=== PATIENT | female | born 1995 | race Hispanic/Latino ===

== ENCOUNTER 2019-02-07 10:09 | Emergency (ER) | payer SELFPAY ==
[2019-02-07 10:39] LABS: APPEARANCE,URINE Clear (CLEAR); BILIRUBIN,URINE Negative (NEGATIVE); COLOR,URINE Yellow (YELLOW); GLUCOSE, URINE (UA) Negative (NEGATIVE); KETONES,URINE Negative (NEGATIVE); LEUKOCYTE ESTERASE ,URINE Small (NEGATIVE); NITRATE,URINE Positive (NEGATIVE); OCCULT BLOOD,URINE Trace (NEGATIVE); PROTEIN,URINE Negative (NEGATIVE); UROBILINOGEN,URINE 0.2 mg/dL (0.2-1.0)
[2019-02-07 10:48] LABS: AMPHET/METH SCREEN,URINE NEGATIVE (NEGATIVE); BARBITURATE SCREEN, URINE NEGATIVE (NEGATIVE); BENZODIAZEPINES SCREEN,URINE NEGATIVE (NEGATIVE); CANNABINOID SCREEN,URINE NEGATIVE (NEGATIVE); COCAINE SCREEN,URINE NEGATIVE (NEGATIVE); OPIATE SCREEN,URINE NEGATIVE (NEGATIVE); PHENCYCLIDINE SCREEN,URINE NEGATIVE (NEGATIVE)
[2019-02-07 10:50] LABS: BASOPHILS % (AUTO) 0.7 % (0.0-5.0); EOSINOPHILS % (AUTO) 1.3 % (0.0-8.0); HEMATOCRIT 37.8 % (36-48); LYMPHOCYTES % (AUTO) 28.5 % (21.0-51.0); MEAN CORPUSCULAR HEMOGLOBIN 26.6 pg (27.0-33.0); MEAN CORPUSCULAR HGB CONC 33.3 g/dL (32.0-36.0); MEAN CORPUSCULAR VOLUME 79.9 fL (79-99); MONOCYTES % (AUTO) 5.9 % (3.0-13.0); NEUTROPHILS % (AUTO) 63.6 % (40.0-77.0); PLATELET COUNT (AUTO) 276 K/uL (130-400); RED BLOOD CELL COUNT(AUTO) 4.73 MIL/uL (4.00-5.50); WHITE BLOOD COUNT (AUTO) 5.8 K/uL (4.8-10.8)
[2019-02-07 10:55] LABS: CREATININE 0.6 mg/dL (0.5-1.5); POTASSIUM 3.7 mmol/L (3.5-5.1)
[2019-02-07 10:58] LABS: BACTERIA,URINE Moderate /HPF (None Seen); RBC,URINE None Seen /HPF (0-1); SQUAMOUS EPITHELIAL CELL,UR Moderate /HPF (0-2)
[2019-02-07 11:36] LABS: HCG,QUAL RESULT NEGATIVE (NEGATIVE)
== END 2019-02-07 12:31 | disposition home or self-care (01) ==
LOC: EDH 10:09
DX: N30.00 Acute cystitis without hematuria (principal); R55 Syncope and collapse
CPT/HCPCS: 36415; 80048; 80305; 81001; 81025; 85025; 93005

== ENCOUNTER 2020-12-12 19:37 | Emergency (ER) | payer BC ==
[2020-12-12] MEDS ORDERED: LIDOCAINE HCL 2% VISCOUS 15 ML UDCUP ONE (20:13)
[2020-12-12] MEDS ORDERED: ACETAMINOPHEN EXTRA STRENGTH 500 MG TABLET ONE (20:13)
== END 2020-12-12 20:54 | disposition home or self-care (01) ==
LOC: EDH 19:37
DX: J02.9 Acute pharyngitis, unspecified (principal)